=== PATIENT | female | born 1955 ===

== ENCOUNTER 2017-01-21 05:55 | Inpatient (IN) | payer MEDICARE ==
[2017-01-15 11:14] VITALS: BMI 42.4
[2017-01-21] MEDS ORDERED: Bupivacaine 0.5% Inj(30mL) ONE (07:12)
[2017-01-21] MEDS ORDERED: ceFAZolin IV 1 gm in Dextrose 2 GM/100 ML BAG IVPB ONE (07:13)
[2017-01-21] MEDS ORDERED: Lidocaine 4% (Laryng-O-Jet) Kit MM ONE (07:24)
[2017-01-21] MEDS ORDERED: ePHEDrine 50 mg/ml Inj ONE (07:24)
[2017-01-21] MEDS ORDERED: Propofol 10 mg/ml Inj (20 ML) ONE ×2 (07:24→11:18)
[2017-01-21] MEDS ORDERED: Succinylcholine 200 mg/10 ml Inj IV ONE (07:24)
[2017-01-21] MEDS ORDERED: Rocuronium 10 mg/ml (5 ml) ONE ×2 (07:24→09:39)
[2017-01-21] MEDS ORDERED: Midazolam 2 MG/2 ML VIAL ONE (07:24)
--- NOTE | 2017-01-21 07:58 | CP.SDSHP ---
Same Day Surgery H & P - History Proposed Procedure: robotic hysterectomy secondary to symptoamtic fibroid uterus Pre-Op Diagnosis: fibroid uterus - Allergies Allergies: Allergies No Known Allergies Allergy (Verified 01/15/17 11:13) - Physical Exam Vital Signs: Vital Signs 01/21/17 01/21/17 01/21/17 06:29 06:31 07:01 Temperature 98.5 F Pulse Rate 97 H 97 H Respiratory 20 Rate Blood Pressure 140/110 H 144/96 H O2 Sat by Pulse 98 Oximetry - Impression Impression: symptomatic fibroid uterus. informed consent obtained discussed r/b /a to surgery patient and daughter agree to plan of care - Date & Time Date: 01/21/17 Time: 07:56 Short Stay Discharge - Short Stay Discharge Admitting Diagnosis/Reason for Visit: D25.9 R10.2 Disposition: HOME/ ROUTINE Referrals: Jovani Cifuentes MD [Primary Care Provider] -
[2017-01-21] MEDS ORDERED: Lactated Ringer's 1,000 ML IV ONE ×3 (08:05→12:40)
[2017-01-21] MEDS ORDERED: Sevoflurane - Inhalation Anesthetic Liq (250 ml) ONE (08:29)
[2017-01-21] MEDS ORDERED: Dexamethasone 4 mg/1 ml ONE (08:55)
[2017-01-21] MEDS ORDERED: Naloxone 0.4 mg/ml Inj (Adult) IVP PRN (11:42)
[2017-01-21] MEDS: HYDROmorphone 0.5 mg/0.5 ml ISec IVP PRN ×5 (11:55→13:18)
[2017-01-21] MEDS: Lactated Ringer's 1,000 ML IV SCH ×2 (14:19→19:45)
--- NOTE | 2017-01-21 14:29 | RAD ---
HISTORY: preop COMPARISON: No prior. TECHNIQUE: Chest PA and lateral FINDINGS: LUNGS: No acute infiltrate is appreciate bilaterally. Limited linear atelectasis or fibrosis seen at the right base. PLEURA: No significant pleural effusion identified. No pneumothorax apparent. CARDIOVASCULAR: Normal. OSSEOUS STRUCTURES: No significant abnormalities. VISUALIZED UPPER ABDOMEN: Normal. OTHER FINDINGS: Surgical clips identified in the bilateral breast soft tissues. IMPRESSION: No acute cardiopulmonary disease appreciable other than potential limited linear atelectasis at the right base versus fibrosis. No acute infiltrate or pleural effusion identified bilaterally.
--- NOTE | 2017-01-21 14:41 | OP ---
PROCEDURE DATE: PREOPERATIVE DIAGNOSES: Symptomatic fibroid uterus, pelvic pressure pain. POSTOPERATIVE DIAGNOSES: Symptomatic fibroid uterus, pelvic pressure pain. OPERATION PERFORMED: Robotic-assisted hysterectomy, cystoscopy. SURGEON: Claudette Waddell MD. SALT OPERATOR: Kay Stockton MD. She was instrumental in the care of the patient. She helped to create exposure, obtain hemostasis. She was helpful in extracting the specimen and closure of the patient. The procedure would not have been possible without her assistance. TYPE OF ANESTHESIA: General. ANESTHESIA ADMINISTERED BY: Terra Ramirez MD. OPERATIVE FINDINGS: A 14-week size uterus, irregular contour with 2 large 7 to 8 cm myomas, history of a previous tubal ligation. Normal ovaries. On cystoscopy, the dome of the bladder was noted to be intact. There was clear efflux of urine from the ureters bilaterally. ESTIMATED BLOOD LOSS: 100 mL. URINE OUTPUT: Acevedo catheter put out approximately 350 mL of clear urine. The patient received approximately 1800 mL of D5 LR intraoperatively. DESCRIPTION OF PROCEDURE: After informed consent was obtained, the patient was then taken to the operating room where she was given general anesthesia. The patient was then prepped and draped in the normal sterile fashion. The patient was placed in the dorsal lithotomy position. She was placed in the [facility]. The speculum was inserted in the vagina. The cervix was visualized and gently dilated. A [employer] uterine manipulator was inserted into the uterine cavity as a means to manipulate the uterus. A Acevedo catheter was inserted into the bladder to monitor the patient's urinary output. Attention was then turned to the Mathis's point where Marcaine was infused. A 5 mm incision was made. The Veress needle was introduced into the abdominal cavity. Placement was confirmed with a fluid-filled syringe. The abdomen was then insufflated to 15 mmHg. A 5 mm trocar was then introduced into the abdominal cavity. The laparoscope was then inserted. The abdomen was surveyed with the findings noted above. Attention was then turned to approximately 5 cm superior to the umbilicus. Marcaine was infused. An 8 mm incision was made and 8 mm robotic port was introduced under direct visualization. Attention was then turned to the right anterior iliac crest approximately 5 cm superior. Marcaine was infused, 8 mm incision was made and as robotic port was introduced under direct visualization. Approximately 10 cm right and lateral to the umbilicus, Marcaine was infused, an 8 mm incision was made and an 8 mm robotic port was introduced into the abdominal cavity. Attention was then turned to the left side which in a similar fashion approximately 5 cm superior to the left anterior iliac crest, Marcaine was infused. An 8-mm incision was made and a robotic port was introduced under direct visualization. The patient was then placed in steep Trendelenburg, the table was lowered and the robot was brought along the patient's side and docked without complication. The instruments used for the procedure were PK dissector, Nehemiah SutureCut, ProGrasp and scissor. The instruments were inserted into the abdominal cavity. I then broke scrub and proceeded to the surgical console. Attention was then turned to the right round ligament. It was serially transected and cut with a scissor. The bladder flap was carried down to the level of VCare cup anteriorly. Attention was then turned to the left ovary. It was grasped with the ProGrasp, elevated up, the ureter was identified inferiorly. The infundibulopelvic ligament was then serially coagulated and then transected with the scissor. The posterior leaf of the broad ligament was then skeletonized posteriorly down to the level of VCare cup posteriorly. The uterine arteries were then skeletonized down to the level of the VCare cup and serially coagulated and transected. Attention was then turned to the right side of the pelvis. The round ligament was identified, serially coagulated and transected . The anterior bladder flap was then created using the PK dissector and the scissor down to the level of VCare cup anteriorly. Attention was then turned to the posterior aspect of the uterus. The posterior leaf of the broad ligament was then undermined with PK dissector and transected. The uterine arteries were then identified. Attention was then turned to the right ovary, which in a similar fashion was grasped with a ProGrasp, elevated up and the ovary IP ligament was then serially coagulated and transected. The uterine arteries were then skeletonized and serially coagulated and transected with a scissor at the level of the VCare cup. The VCare cup was then identified anteriorly, posteriorly and laterally. Due to the size of the uterus, the anterior fibroid was enucleated using both sharp and blunt dissection. Attention was then turned to the posterior fibroid, which in a similar fashion was enucleated using both sharp and blunt dissection. The cervix and the uterus were then amputated from the vagina using the cautery. The uterus, cervix and fallopian tubes and ovaries were then extracted vaginally. The fibroids were then extracted using a ring forceps. The vaginal cuff was closed with 2-0 on a barbed suture. The abdomen was then irrigated. Hemostasis was noted. The pedicles were inspected and noted to be hemostatic. All instruments were then removed from the abdomen and the robot was undocked from the patient successfully. Attention was then turned to the bladder. Due to extensive manipulation, a cystoscopy was performed. The dome of the bladder was noted to be intact. We noted bilateral clear efflux of urine. The cystoscope was then terminated. The incisions were repaired with 3-0 Biosyn and Dermabond. All sponge, lap, needle and instrument counts were correct x2. The patient was taken to the recovery room in awake and stable condition. Claudette Waddell MD
[2017-01-21] MEDS: cefOXitin IV 1 gm in Dextrose 1 GM/50 ML BAG IVPB SCH (16:26)
[2017-01-22] MEDS: cefOXitin IV 1 gm in Dextrose 1 GM/50 ML BAG IVPB SCH ×2 (00:54→09:39)
[2017-01-22] MEDS: Lactated Ringer's 1,000 ML IV SCH ×2 (00:55→03:45)
[2017-01-22 05:59] VITALS: RESP 20
[2017-01-22 06:49] LABS: HEMATOCRIT 34.5 % (34.0-47.0); MEAN CELL VOLUME 76.1 fl (81.0-99.0); MEAN CORPUSCULAR HEMOGLOBIN 24.6 pg (27.0-31.0); MEAN CORPUSCULAR HGB CONC 32.3 g/dL (33.0-37.0); RED CELL DISTRIBUTION WIDTH 18.7 % (11.5-14.5); WHITE BLOOD COUNT 11.7 K/uL (4.8-10.8)
[2017-01-22 09:04] VITALS: TEMP 97.1; O2SAT 97
[2017-01-22 09:41] VITALS: BP 110/73; PULSE 70
--- NOTE | 2017-01-22 13:10 | CP.SDSHP ---
Same Day Surgery H & P - Allergies Allergies: Allergies No Known Allergies Allergy (Verified 01/15/17 11:13) - Physical Exam Vital Signs: Vital Signs 01/22/17 01/22/17 01/22/17 05:55 09:03 09:40 Temperature 97.8 F 97.1 F L Pulse Rate 88 91 H 70 Respiratory 20 20 Rate Blood Pressure 114/86 108/73 110/73 O2 Sat by Pulse 98 97 Oximetry Short Stay Discharge - Short Stay Discharge Admitting Diagnosis/Reason for Visit: D25.9 R10.2 Referrals: Jovani Cifuentes MD [Primary Care Provider] - Claudette Waddell MD [Staff Provider] - Instructions: Cystoscopy (DC), Robot Assisted Laparoscopic Hysterectomy (DC), Salpingo-oophorectomy (DC) Additional Instructions (Diet, Activity): favor de hacer nasima para seguir con todd doctor para chequeo Progress Note/Discharge Note with Instructions: patient doing well f/u in one week no heavy lifting mortin percocet and colace rx provided nothing per vagina
[2017-01-22] MEDS ORDERED: Oxycodone/Acetaminophen 5/325 mg Tab PO ONE (13:20)
[2017-01-22] MEDS ORDERED: Influenza Vaccine 18yr & older 0.5 ML/45 MCG SYR IM ONE (14:34)
== END 2017-01-22 15:55 | disposition home or self-care (01) | DRG 743 ==
LOC: H.OPSURG 05:55 → H.MEDSURG1 12:01
PROVIDERS: ADMIT Obstetrics & Gynecology Gynecology; ATTEND Obstetrics & Gynecology Gynecology
PROC: 0TJB8ZZ Inspection of Bladder, Via Natural or Artificial Opening Endoscopic (ICD-10-PCS; 2017-01-21)
PROC: 0UT9FZZ Resection of Uterus, Via Natural or Artificial Opening With Percutaneous Endoscopic Assistance (ICD-10-PCS; principal; 2017-01-21 07:45)
PROC: 8E0W4CZ Robotic Assisted Procedure of Trunk Region, Percutaneous Endoscopic Approach (ICD-10-PCS; 2017-01-21 07:45)
PROC: 3E0234Z Introduction of Serum, Toxoid and Vaccine into Muscle, Percutaneous Approach (ICD-10-PCS; 2017-01-22)
DX: D25.9 Leiomyoma of uterus, unspecified (principal); Z23 Encounter for immunization